=== PATIENT | female | born 1970 | race Caucasian/White ===

== ENCOUNTER → 2020-02-29 | Outpatient (CLI) | payer OTHER ==
[~2020-02-29] MED LIST: ABILIFY 2 MG2 MG PO; ALEVE220 M1 PO; BACTRIM OR; EFFEXOR XR75 MG PO; EFFEXOR75 MG PO; HYDROCODON-ACE1 EAC5; HYDROCODON-ACE1 EACH PO; IBUPROFEN 200200 M1 PO; IRON325; LIPITOR 10 MG10 M1 PO; LOVENOX; NEXIUM 40 MG CA40 M1 PO; POTASSIUM600 MG PO; PREMARIN0.3 MG PO; PRILOSEC 20 MG20 MG PO; PROBIOTIC1 EAC7 PO; SENNA PLUS TAB1 EACH PO; STOOL SOFTENER100 M1 PO; TOPAMAX100 MG PO; TRAZODONE HCL100 MG PO; TURMERIC500 M2 PO; TYLENOL325 MG PO; VITAMIN D31250 MCG PO
== END ==
LOC: LAB 07:22
PROVIDERS: ATTEND Orthopaedic Surgery
DX: Z01.812 Encounter for preprocedural laboratory examination (principal); Z20.828 Contact with and (suspected) exposure to other viral communicable diseases

== ENCOUNTER → 2020-02-29 | Outpatient (CLI) | payer OTHER ==
[~2020-02-29] VITALS: Ht 180.3 cm; Wt 83.9 kg
[~2020-02-29] MED LIST changes: +IBU800 MG PO; +POTASSIUM GLUC500 MG PO
[2020-02-29 13:44] LABS: URINE BILIRUBIN NEGATIVE (Negative); URINE BLOOD NEGATIVE (Negative); URINE CLARITY CLEAR; URINE COLOR YELLOW; URINE GLUCOSE-RANDOM* NEGATIVE (Negative); URINE KETONES TRACE (Negative); URINE NITRITE-REFLEX NEGATIVE (Negative); URINE PROTEIN (DIPSTICK) NEGATIVE (Negative); URINE UROBILINOGEN 0.2 E.U./dl (0.2-1.0)
[2020-02-29 13:45] LABS: HEMATOCRIT 39.5 % (37.0-47.0); HEMOGLOBIN 13.2 gm/dL (12.0-15.0); MCH 31.5 pg (26.0-34.0); MCHC 33.4 g/dL (28.0-37.0); MCV 94.3 fL (80.0-100.0); RBC 4.19 mil/uL (4.20-5.00); RDW 13.3 % (10.5-14.5); URINE LEUKOCYTES-REFLEX 1+ (Negative); WBC 4.9 thou/uL (4.0-11.0)
--- NOTE | 2020-02-29 13:46 | EKG ---
[facility] [place] [address] ELECTROCARDIOGRAM REPORT Name: HARSHIL DURON Room #: PRE IN .R.#: [id number] Admission: Attend Phys: Jef Shelton MD Discharge: Date of : 66 Report #: [id number] THIS REPORT FOR: cc: Caitlyn Salinas MD, Mitzi M. MD Santiago, Patrick [facility] ~ THIS REPORT FOR: //name// [facility] Test Date: 2020-02-29 Test Time: 13:31:36 Pat Name: HARSHIL DURON Department: Room: Gender: F Obstetrics Gyn: Makenna HUGO : 1970 Requested By: Jef Shelton Order Number: [id number] : Donny Swift Measurements Intervals [place] Rate: 80 P: 23 UT: 137 QRS: 11 QRSD: 95 T: 9 QT: 392 QTc: 453 Interpretive Statements Sinus rhythm No previous ECG available for comparison Electronically Signed On 02-29-2020 13:46:38 CDT by Donny Swift [email or web address] <ELECTRONICALLY SIGNED> By: Donny Swift MD, FACC 02/29/20 1346 1331 1331 Donny Swift MD, FACC /EPI
[2020-02-29 13:52] LABS: ALBUMIN 4.3 g/dL (3.4-5.0); CALCIUM 8.5 mg/dL (8.5-10.1); CREATININE 1.1 mg/dL (0.6-1.0); POTASSIUM 4.1 mmol/L (3.5-5.1)
[2020-02-29 13:53] LABS: PROTIME 10.6 Seconds (9.3-11.4)
[2020-02-29 13:54] LABS: CASTS None Seen /LPF (None Seen); MUCUS 0-3 Light strn/LPF (None Seen); SQUAMOUS 0-3 Few /LPF (0-3); URINE WBC-REFLEX 0-5 Rare /HPF (0-5)
[2020-02-29 13:55] LABS: BACTERIA-REFLEX 1-9 Few /HPF (None Seen); CRYSTALS None Seen /LPF (None Seen); URINE RBC 0-2 Rare /HPF (0-2)
== END ==
LOC: PAC 09:00 → PRE 03-04 11:02 → EDSTATUS 03-05 16:08 → PRE 03-05 16:45
PROVIDERS: ATTEND Orthopaedic Surgery
DX: Z01.812 Encounter for preprocedural laboratory examination (principal); Z01.810 Encounter for preprocedural cardiovascular examination

== ENCOUNTER → 2020-03-14 | Outpatient (CLI) | payer OTHER ==
[~2020-03-14] MED LIST changes: +HYDROCODON-ACE1 EAC7 PO
== END ==
LOC: LAB
PROVIDERS: ATTEND Orthopaedic Surgery
DX: Z01.812 Encounter for preprocedural laboratory examination (principal); Z20.828 Contact with and (suspected) exposure to other viral communicable diseases

== ENCOUNTER → 2020-04-11 | Outpatient (CLI) | payer OTHER | LOC: LAB 11:47 | PROVIDERS: ATTEND Orthopaedic Surgery | DX: Z01.812 Encounter for preprocedural laboratory examination (principal); Z20.828 Contact with and (suspected) exposure to other viral communicable diseases ==

== ENCOUNTER 2020-04-16 08:18 | Inpatient (IN) | payer OTHER ==
[2020-04-11 11:23] LABS: HEMATOCRIT 39.4 % (37.0-47.0); HEMOGLOBIN 13.1 gm/dL (12.0-15.0); MCH 31.7 pg (26.0-34.0); MCHC 33.3 g/dL (28.0-37.0); MCV 95.2 fL (80.0-100.0); RBC 4.14 mil/uL (4.20-5.00); RDW 13.3 % (10.5-14.5)
[2020-04-11 11:29] LABS: URINE BILIRUBIN NEGATIVE (Negative); URINE BLOOD NEGATIVE (Negative); URINE CLARITY CLEAR; URINE COLOR YELLOW; URINE GLUCOSE-RANDOM* NEGATIVE (Negative); URINE KETONES NEGATIVE (Negative); URINE LEUKOCYTES-REFLEX NEGATIVE (Negative); URINE NITRITE-REFLEX NEGATIVE (Negative); URINE PROTEIN (DIPSTICK) NEGATIVE (Negative); URINE UROBILINOGEN 0.2 E.U./dl (0.2-1.0)
[2020-04-11 11:38] LABS: CREATININE 0.9 mg/dL (0.6-1.0); PROTIME 10.5 Seconds (9.3-11.4)
[~2020-04-16] VITALS: Ht 177.8 cm; Wt 85.7 kg
--- NOTE | ~2020-04-16 | O ---
[facility] [address] [place] [address] OPERATIVE REPORT Name: HARSHIL DURON Room #: 150-2 ADM IN M.R.#: [id number] Admission: 04/16/20 Attend Phys: Jef Shelton MD Discharge: Date of : 66 Report #: [id number] THIS REPORT FOR: cc: GIANNI BORREGO DO Physician not on staff Jef Shelton MD ~ CC: GIANNI BORREGO Physician staff Jef Shelton DATE OF SERVICE: 04/16/2020 PREOPERATIVE DIAGNOSIS: Left total knee arthroplasty, aseptic loosening. POSTOPERATIVE DIAGNOSIS: Left total knee arthroplasty, aseptic loosening. PROCEDURE: Revision left total knee arthroplasty, tibial, femoral, and polyethylene components. SURGEON: Jef Shelton MD. CHIEF CRNA: Tari Qureshi PA-C. INDICATIONS FOR CHIEF CRNA: Throughout the case, extensive retraction and manipulation of the knee was required. This was afforded to me by my glass ribbon machine operator assistant. ANESTHESIA: LMA with an adductor canal block. IMPLANTS: Osuna and Nephew size 6 Legion Oxinium revision femoral component with a 15 x 160 stem and a 6 mm offset guest service agent, size 4 tibial baseplate with a 13 x 160 stem and a 2 mm offset guest service agent and a size 21 constrained polyethylene. TOURNIQUET TIME: 82 minutes. ESTIMATED BLOOD LOSS: 100 mL. COMPLICATIONS: None. SPECIMENS: Intraoperative frozen section was performed that showed less than 5 white cells per high power field as well as cultures were sent. CONDITION UPON LEAVING THE OPERATING ROOM: Stable. INDICATIONS FOR PROCEDURE: The patient is a 50-year-old female who is about 14 years out from a left total knee arthroplasty. Her initial procedure did not include a resurfaced patella and about 2 years ago she was complaining of [facility] [address] [place] [address] OPERATIVE REPORT Name: HARSHIL DURON Room #: 150-2 ADM IN ..#: [id number] Admission: 04/16/20 Attend Phys: Jef Shelton MD Discharge: Date of : 66 Report #: [id number] anterior knee pain and we resurfaced her patella, but did not revise the rest of her components. She has had continued worsening of her pain and symptoms consistent with aseptic loosening of the knee. Workup for infection was negative. After discussion with her, she elected for revision left knee arthroplasty. DESCRIPTION OF PROCEDURE: Risks, benefits, alternatives, complications were discussed in detail with the patient including but not limited to risk of anesthesia, risk of damage to nerves, arteries, blood vessels, risk for infection, bleeding, risk for continued knee pain, need for reoperation. Informed consent was obtained from the patient. Left knee was appropriately marked in the preoperative holding area. IV clindamycin was given for preoperative antibiotics. She was brought to the operating room and placed in supine position on operating room table. LMA anesthesia was induced without complication. Tourniquet was placed on the left thigh. Left lower extremity was prepped and draped in normal sterile fashion. Timeout was performed properly identifying the patient and procedure as well as the instrumentation and implants. All in the operating room were in agreement. Left lower extremity was exsanguinated, tourniquet was inflated, tourniquet time was ____ minutes. The previous scar was used and this was opened with a 10 blade through the skin. Dissection was taken down the fascia and deep flaps were developed medially and laterally. Fresh 10 blade was used to make a medial parapatellar arthrotomy and cultures of the synovial fluid were taken and sent. Several samples of the synovial tissue were removed sharply and sent for intraoperative frozen section, which revealed less than 5 white cells per high power field. The polyethylene was then removed easily and the medial and lateral gutters were reestablished. Femoral and tibial components were then removed with osteotomes. These came out rather easily and there were several areas of osteolysis in the femoral and tibial bone. We removed cement from the bone and then the canals were sequentially reamed to a size 13 for the tibia and a size 15 for the femur. A tibial cleanup cut was then made based off the intramedullary reamer. The tibia was sized, found to be a 4. Size 4 tibia fit best with a 2 mm offset guest service agent at the 4:30 position. The tibia was prepared for this implant and a trial tibial implant was placed. Attention was turned to the femur. This was reamed again up to 15. A cleanup cut was made. It was determined that we would need a 5-mm medial wedge on the femur after doing the cleanup cut on the medial femur. The femoral component was sized at 6 with a 6 mm offset guest service agent at the 6 o'clock position. Chamfer cuts were then made. A trial femoral component was placed and box cut was made. We then trialled up to a size 21 constrained polyethylene and size 21 demonstrated good range of motion with good stability medially and laterally and good patellar tracking. After this, trial components were removed. Bony ends were thoroughly irrigated with normal saline. The final tibial and femoral implants were then cemented in place using standard cementation techniques while the cement cured. A periarticular injection consisting of morphine, ropivacaine, epinephrine and Toradol was placed around the knee joint capsule. After the cement cured, the tourniquet was deflated. [facility] [address] [place] [address] OPERATIVE REPORT Name: HARSHIL DURON Room #: 150-2 [facility] IN [facility]#: [id number] Admission: 04/16/20 Attend Phys: Jef Shelton MD Discharge: Date of : 66 Report #: [id number] Hemostasis was obtained with Bovie cautery. A final size 21 constrained polyethylene was placed. A gram of vancomycin was placed deep in the joint. The fascia was closed with 0 Vicryl, skin was closed with 2-0 Vicryl, skin staple and a ANGEL dressing was applied. The patient tolerated this procedure well and went to recovery room under care of anesthesia postoperatively. By: 1622 1743 Jef Shelton MD /nt
[2020-04-16 13:00] VITALS: BP 110/64
[2020-04-16 18:11] VITALS: BP 94/66
[2020-04-16 19:40] VITALS: BP 90/57
--- NOTE | 2020-04-16 20:25 | NUR ---
PATIENT ADMITTED FROM OR WITH LEFT TOTAL KNEE REVISION, ANGEL DRESSING TO LEFT KNEE, KNEE HIGH TAYLOR REYNOLDS, SCD'S, POLAR CARE IN PLACE. PATIENT C/O PAIN UPON ARRIVAL TO THE UNIT, MORPHINE 2 MG IV GIVEN PAIN LEVEL 10/10. RIGHT WRIST IV IN PLACE, D51/2 NS AT 100CC/HR STARTED. NO C/O NAUSEA, REGULAR DIET ORDERED. SCOP PATCH BEHIND RIGHT EAR. PATIENT CONTINUES TO C/O PAIN, 7/10 OXYCODONE 10MG 1 TABLET GIVEN. REPORT GIVEN TO KEITH/CHAYITO.
--- NOTE | 2020-04-17 04:07 | NUR ---
[facility]ADY. L KNEE WITH ANGEL DRSG INTACT.POLAR NOEMY MANTAINED. NEURO CHECKS TO LEFT FOOT INTACT. PT STILL REPORTS SOME MILD NUMBNESS TO LEFT THIGH, SHE HAS BEEN GETTING UP TO THE BSC-VOIDING ADEQUATELY.REQUIRES SBA AND SHE CALLS APPROPRIATELY.AFEBRILE.SATTING WELL ABOVE 95% ON ROOM AIR.TEDS AND SCDS IN PLACE.DRINKING WATER.DENIES DIZZINESS.FALL PREC IN PLAXCE. WILL CONTINUE WITH POC TILL EOS.
[2020-04-17 04:31] VITALS: BP 91/56
[2020-04-17 06:15] LABS: HEMATOCRIT 29.7 % (37.0-47.0); HEMOGLOBIN 10.1 gm/dL (12.0-15.0); MCH 32.5 pg (26.0-34.0); MCHC 33.8 g/dL (28.0-37.0); MCV 96.1 fL (80.0-100.0); RBC 3.09 mil/uL (4.20-5.00)
[2020-04-17 08:04] VITALS: BP 97/62
--- NOTE | 2020-04-17 09:57 | NUR ---
ASSESSMENT: CM REVIEWED CHART AND SPOKE WITH PT. PT IS ALERT AND ORIENTED X4. PT IS S/P REVISION OF LEFT TKA. PT REPORTS LIVING IN A HOUSE WITH HER . PT REPORTS 2 STEPS TO ENTER WITH NO HANDRAILS AND ALL HER NEEDS ARE ON THE MAIN LEVEL. PT REPORTS HAVING A WALKER AT HOME WELL A SHOWER CHAIR. PT/OT IS TO SEE PATIENT. PT REPORTS HAVING OUTPATIENT THERAPY ALREADY ARRANGED AT [facility] FOR WEDNESDAY AT 1215. PT DOES NOT ANTICIPATE HAVING ANY NEEDS FROM CM. PLANS ARE FOR PATIENT TO DISCHARGE HOME ONCE CLEARED/MEDICALLY STABLE.
--- NOTE | 2020-04-17 11:22 | NUR ---
PT CARE ASSUMED AT 0700. A&Ox4. PAIN NOT UNDER CONTROL YET. PT EDUCATED ON CALLING OUT NO LATER THEN PAIN SCALE OF 5. PT UNDERSTANDS. SCOLPAMINE PATCH PATCH IN PLACE BEHIND L.EAR. IV PATENT WITH NO REDNESS OR EDEMA, SALINE LOCKED. POLARPACK IN PLACE. TEDS/SCD'S IN PLACE. IS IN ROOM. ANGEL DRESSING REPLACED, SATURATED AND HAD A LEAK. FALL PROTOCOL IN PLACE. CALL LIGHT IN REACH. WILL CONTINUE TO MONITOR.
[2020-04-17 17:50] VITALS: BP 96/58
[2020-04-17 19:28] VITALS: BP 94/68
--- NOTE | 2020-04-17 20:06 | PATH ---
[facility] [place] [address] PATHOLOGY RPT PROCEDURE Name: EMILY TYLER Room #: 438-P ADM IN M.R.#: [id number] Admission: 04/16/20 Date of : 66 Discharge: Report #: [id number] Path Case #: [id number] [facility] Accession Number: [id number] . 01 Material submitted: . knee - LEFT KNEE SYNOVIAL FLUID - FS. Modifiers: left . 01 Clinical history: . TOTAL KNEE REVISION, PRESENCE OF LEFT ARTIFICAL KNEE JOINT; UNILATERAL PRIMARY OA, LEFT KNEE . 02 Frozen section diagnosis: . FROZEN SECTION DIAGNOSIS (Dr. Meeta Camarillo) . FSA1. "Left knee synovial fluid": - Synovium with no significant acute inflammation. - Less than 5 pmns/1 hpf. . The case was discussed with Dr. Shelton in the operating room and a written report is placed in the patient's chart. . . GROSS DESCRIPTION The specimen is received fresh from the OR labeled "Emily Tyler, and left knee synovial fluid". It consists of 3 fragments of irregularly shaped fox white and yellow soft fibrous synovial tissue measuring 4.5 x 3.4 x 1.5 cm in aggregate. A compliance representative dealer portion of each segment is submitted for 1 frozen section labeled FSA1. The frozen section is then submitted as A1. (CLW:[place]; 04/16/2020) . Frozen section performed at [facility], [facility] [address], [place] [address]. KUMAR/RICHARD . 03 Diagnosis: "Left knee synovial fluid", excisional biopsy: - Synovium with no significant acute inflammation (less than 5 neutrophils per 1 hpf). (CLW:[facility] 04/17/2020) [facility] 04/17/2020 1249 Local . 03 Comment: Clinical correlation is recommended. (CLW:[facility] 04/17/2020) [place] [address] PATHOLOGY RPT PROCEDURE Name: EMILY TYLER Room #: 438-P [facility] IN [facility]#: [id number] Admission: 04/16/20 Date of : 66 Discharge: Report #: [id number] Path Case #: [id number] . 03 Electronically signed: . Meeta Camarillo MD, Pathologist NPI- [id number] . 01 Gross description: . SEE FROZEN SECTION FOR GROSS DESCRIPTION . Additional compliance representative dealer tissue is submitted in A2-A3. (SDY; 04/16/2020) SYU/SYU 04/17/2020 0659 Local . 03 Pathologist provided ICD-10: M17.12, Z96.652 . 03 CPT . 457612, 176270 Specimen Comment: A courtesy copy of this report has been sent to [phone] Specimen Comment: [phone] Specimen Comment: Report sent to / DR BORREGO Performed at: [address], [place] [id number] MD Cornelius Lucas MD Phone: [phone] Performed at: [address] [id number] MD Lesa Thurston MD Phone: [phone] Performed at: 03 [facility] [address] [id number] MD Alla Roca MD Phone: [phone]
--- NOTE | 2020-04-17 20:44 | NUR ---
ASSUMED CARE OF PT AT 1700. REVIEWED PREVIOUS NURSES ASSESSMENT, NO CHANGES NOTED. PT IN CHAIR AND CALLS APPROPRIATELY FOR ASSISTANCE. FALL PRECAUTIONS IN PLACE AND NURSING WILL CONTINUE TO MONITOR.
--- NOTE | 2020-04-18 01:20 | NUR ---
ASSUMED PT CARE AT SHIFT CHANGE. PT IS A&OX4. VSS. IV IS IN HER RIGHT WRIST. PT VOICES THAT HER PAIN IS AT AN 8. PT CALLS OUT APPROPRIATELY FOR ASSISTANCE. PT HAS POLAR PACK ON HER LEFT KNEE. TAYLOR REYNOLDS AND SCD ON BLE. PT EDUCATED ON THE NEED OF THE IS. PT CALLS OUT WHEN SHE NEEDS HELP GETTING TO THE RESTROOM. PT USES THE WALKER AND IS A STANDBY. PT HAS A SCOLPAMINE PATCH BEHIND HER LEFT EAR. HOURLY ROUND PERFORMED. WILL CONTINUE TO MONITOR.
[2020-04-18 05:39] VITALS: BP 104/66
[2020-04-18 05:59] LABS: HEMOGLOBIN 9.2 gm/dL (12.0-15.0); MCHC 34.1 g/dL (28.0-37.0); MCV 96.7 fL (80.0-100.0); RBC 2.79 mil/uL (4.20-5.00); RDW 13.4 % (10.5-14.5); WBC 5.9 thou/uL (4.0-11.0)
--- NOTE | 2020-04-18 06:39 | NUR ---
I HAVE REVIEWED AND AGREE ON THE DOCUMENTATION DONE BY Bettye HALL LPN.
[2020-04-18 07:50] VITALS: BP 95/56
[2020-04-18 10:42] VITALS: BP 95/56
--- NOTE | 2020-04-18 13:08 | NUR ---
Assumed care of pt. at 0700. Pt. is calm and cooperative. Pt. received clearance for discharge from Dr. England. Dr. England requested pt. have pain pill at D/C. One time early dose given at D/C. Pt. was given D/C education and information. Pt. left unit with all belongings.
== END 2020-04-18 11:55 | disposition home or self-care (01) | DRG 468 ==
LOC: PRE 08:18 → 4S 11:52 → TBA 11:52 → PRE 15:25 → 4S 17:52
PROVIDERS: ADMIT Orthopaedic Surgery; ATTEND Orthopaedic Surgery
PROC: 0SPD0JZ Removal of Synthetic Substitute from Left Knee Joint, Open Approach (ICD-10-PCS; principal; 2020-04-16)
PROC: 0SRD069 Replacement of Left Knee Joint with Oxidized Zirconium on Polyethylene Synthetic Substitute, Cemented, Open Approach (ICD-10-PCS; principal; 2020-04-16)
DX: T84.033A Mechanical loosening of internal left knee prosthetic joint, initial encounter (principal); Y83.1 Surgical operation with implant of artificial internal device as the cause of abnormal reaction of the patient, or of later complication, without mention of misadventure at the time of the procedure; Y92.89 Other specified places as the place of occurrence of the external cause; Z88.0 Allergy status to penicillin; Z23 Encounter for immunization
CPT/HCPCS: 10102; 50010; 50101; 50415; 50954; 51130; 51225; 51320; 51412; 52001; 52282; 53000; 53078; 56528; 57095; 57103; 57180; 62110; 62900; 64039; 70005

== ENCOUNTER → 2020-05-20 | Outpatient (CLI) | payer OTHER | LOC: NUC 13:09 | PROVIDERS: ATTEND Orthopaedic Surgery | DX: M85.88 Other specified disorders of bone density and structure, other site (principal) ==